=== PATIENT | male | born 2000 | race Caucasian/White ===

== ENCOUNTER 2022-05-13 21:55 | Emergency (ER) | payer OTHER ==
[~2022-05-13] VITALS: Ht 172.7 cm; Wt 53.0 kg
[2022-05-13] MEDS ORDERED: QVAR REDIHALE10.6 G1 INH (22:09)
[2022-05-13] MEDS ORDERED: VENTOLIN HFA18 GM INH ×2 (22:10→23:17)
[2022-05-13] MEDS ORDERED: PREDNISONE20 MG PO (23:17)
== END 2022-05-13 23:29 | disposition home or self-care (01) ==
LOC: ED 21:55
DX: J45.901 Unspecified asthma with (acute) exacerbation (principal); Z20.822 Contact with and (suspected) exposure to COVID-19
CPT/HCPCS: 36415; 71045; 80048; 85025; 87502; 94640; 96374; 99285-25; C9803; J2930; U0003

== ENCOUNTER 2023-11-03 17:09 | Emergency (ER) | payer OTHER ==
[~2023-11-03] VITALS: Ht 172.7 cm; Wt 78.0 kg
[~2023-11-03 17:09] MED LIST: PREDNISONE20 MG PO; QVAR REDIHALE10.6 G1 INH; VENTOLIN HFA18 GM INH
[2023-11-03] MEDS ORDERED: ALBUTEROL/IPRATROPIUM 3 ML NEB INH ONE (17:45)
[2023-11-03] MEDS ORDERED: QVAR REDIHALE10.6 G1 INH (19:58)
[2023-11-03] MEDS ORDERED: INHALER, ASSIST DEVICES 1 EACH SPACER MISC ONE (20:00)
[2023-11-03] MEDS ORDERED: ALBUTEROL SULFATE 8 GM HOME.PACK INH ONE (20:00)
[2023-11-03 20:14] VITALS: BP 122/70
== END 2023-11-03 20:14 | disposition home or self-care (01) ==
LOC: ED 17:09
DX: J45.901 Unspecified asthma with (acute) exacerbation (principal)
CPT/HCPCS: 94640; 99284-25

== ENCOUNTER 2024-04-02 22:11 | Emergency (ER) | payer OTHER ==
[~2024-04-02] VITALS: Ht 172.7 cm; Wt 76.7 kg
[2024-04-02 23:45] LABS: INFLUENZA B NAA NEGATIVE (NEGATIVE); RESPIRATORY SYNCYTIAL VIR NAA NEGATIVE (NEGATIVE)
[2024-04-03 00:08] VITALS: BP 137/67
== END 2024-04-03 00:11 | disposition home or self-care (01) ==
LOC: ED 22:11
PROVIDERS: Internal Medicine
DX: B34.9 Viral infection, unspecified (principal); Z02.79 Encounter for issue of other medical certificate; J45.909 Unspecified asthma, uncomplicated
CPT/HCPCS: 87502; 99284; U0002

== ENCOUNTER 2025-01-19 20:49 | Emergency (ER) | payer OTHER ==
[~2025-01-19] VITALS: Ht 172.7 cm; Wt 67.9 kg
[2025-01-19] MEDS ORDERED: ALBUTEROL/IPRATROPIUM 3 ML NEB INH ONE (21:15)
[2025-01-19] MEDS ORDERED: BUDESONIDE 0.5 MG/2 ML VIAL INH ONE (21:15)
[2025-01-19] MEDS ORDERED: ALBUTEROL SULFATE 0.5% 2.5 MG/0.5 ML VIAL INH ONE (21:15)
[2025-01-19] MEDS ORDERED: INHALER, ASSIST DEVICES 1 EACH SPACER MISC ONE (21:30)
[2025-01-19] MEDS ORDERED: ALBUTEROL SULFATE 8 GM HOME.PACK INH ONE (21:30)
[2025-01-19] MEDS ORDERED: SYMBICORT 16010.2 GM INH (21:43)
[2025-01-19] MEDS ORDERED: methylPREDNISolone 4 MG HOME.PACK PO ONE (21:45)
[2025-01-19 22:14] VITALS: BP 137/84
--- NOTE | 2025-01-20 21:37 | EKG ---
[facility] [address] [facility] [place] [address] Signed Sinus rhythm with marked sinus arrhythmia with short [place] Otherwise normal ECG No previous ECGs available Confirmed by Viv Morales MD () on 01/20/2025 9:37:04 PM Electronically Signed By: VIV MORALES MD 01/20/25 2137 PATIENT NAME: KELLY BARAJAS Electrocardiogram DATE OF : [birth year] PHYSICIAN: VIV MORALES MD REPORT #: [id number] REPORT IS CONFIDENTIAL AND NOT TO BE RELEASED WITHOUT AUTHORIZATION
== END 2025-01-19 22:15 | disposition home or self-care (01) ==
LOC: ED 20:49
DX: J45.901 Unspecified asthma with (acute) exacerbation (principal)
CPT/HCPCS: 71045; 93005; 93010; 94640; 94644; 94664; 99285-25

== ENCOUNTER 2025-06-25 08:05 | Emergency (ER) | payer OTHER ==
[~2025-06-25] VITALS: Ht 172.7 cm; Wt 69.0 kg
[~2025-06-25 08:05] MED LIST changes: +SYMBICORT 16010.2 GM INH
[2025-06-25] MEDS ORDERED: ALBUTEROL/IPRATROPIUM 3 ML NEB INH ONE (08:15)
[2025-06-25] MEDS ORDERED: PREDNISONE20 MG PO (08:38)
[2025-06-25] MEDS ORDERED: VENTOLIN HFA18 GM INH (08:38)
[2025-06-25 08:44] VITALS: BP 127/75
[2025-06-25] MEDS ORDERED: predniSONE 20 MG TAB PO ONE (08:45)
[2025-06-25] MEDS ORDERED: ALBUTEROL SULFATE 8 GM HOME.PACK INH ONE ×2 (08:45→09:00)
== END 2025-06-25 08:56 | disposition home or self-care (01) ==
LOC: ED 08:05
DX: J45.901 Unspecified asthma with (acute) exacerbation (principal); Z79.899 Other long term (current) drug therapy
CPT/HCPCS: 94640; 99284; J7512

== ENCOUNTER 2025-07-17 19:26 | Emergency (ER) | payer OTHER ==
[~2025-07-17] VITALS: Ht 172.7 cm; Wt 65.0 kg
--- OUTSIDE RECORDS SUMMARY | 2025-07-17 19:33 | XMS ---
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 E.Dali VISIT COUNT (12 MO.) [address] [place] [address] TOTAL 3 NOTE: Visits indicate total known visits. 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
[2025-07-17] MEDS ORDERED: BUDESONIDE 0.5 MG/2 ML VIAL INH ONE (19:45)
[2025-07-17] MEDS ORDERED: ALBUTEROL/IPRATROPIUM 3 ML NEB INH ONE (19:45)
[2025-07-17] MEDS ORDERED: ALBUTEROL SULFATE 0.5% 2.5 MG/0.5 ML VIAL INH ONE (19:45)
[2025-07-17] MEDS ORDERED: VENTOLIN HFA18 GM INH (21:11)
[2025-07-17] MEDS ORDERED: ALBUTEROL SULFATE 8 GM HOME.PACK INH ONE (21:15)
[2025-07-17] MEDS ORDERED: AZITHROMYCIN 250 MG HOME.PACK PO ONE (21:15)
[2025-07-17] MEDS ORDERED: methylPREDNISolone 4 MG HOME.PACK PO ONE (21:15)
[2025-07-17 21:21] VITALS: BP 125/80
== END 2025-07-17 21:22 | disposition home or self-care (01) ==
LOC: ED 19:26
DX: J45.901 Unspecified asthma with (acute) exacerbation (principal)
CPT/HCPCS: 71045; 94640; 94644; 96374; 99285-25; J2919

== ENCOUNTER 2025-08-14 14:58 | Emergency (ER) | payer OTHER ==
[~2025-08-14] VITALS: Ht 172.7 cm; Wt 73.8 kg
--- OUTSIDE RECORDS SUMMARY | 2025-08-14 15:04 | XMS ---
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 EYifan VISIT COUNT (12 MO.) [address] [place] [address] TOTAL 4 NOTE: Visits indicate total known visits. 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 [place] TYPE: Emergency COMPLAINT: - TROUBLE BREATHING DIAGNOSES: - Shortness of breath - Unspecified asthma with (acute) exacerbation INPATIENT VISIT TRACKING (12 MO.) No inpatient visits to display in this time frame [email or web address]
[2025-08-14] MEDS ORDERED: ALBUTEROL/IPRATROPIUM 3 ML NEB INH PRN (15:15)
[2025-08-14 16:15] LABS: BASOPHILS 0.9 % (0.2-1.2); EOSINOPHILS 13.3 % (0.8-7.0); LYMPHOCYTES 45.0 % (21.8-53.1); MCH 31.1 PG (25.7-32.2); MCHC 36.2 g/dL (32.3-36.5); MCV 86.0 fL (79.0-92.2); MONOCYTES 6.3 % (5.3-12.2); NEUTROPHILS 34.4 % (34.0-67.9); RBC 5.08 M/uL (4.63-6.08)
[2025-08-14 16:37] LABS: ALT (SGPT) 29.0 U/L (14-59); AST (SGOT) 21.0 U/L (15-37); GLOMERULAR FILTRATION RATE,EST 85.0 mL/min (>60); PROTEIN, TOTAL 7.0 g/dL (6.4-8.2); UREA NITROGEN 11.0 mg/dL (7-18)
[2025-08-14] MEDS ORDERED: ALBUTEROL2.5 MG/3 M INH (20:29)
[2025-08-14] MEDS ORDERED: AMOX TR-K CLV1 EAC1 PO (20:29)
[2025-08-14] MEDS ORDERED: ALBUTEROL SULFATE 8 GM HOME.PACK INH ONE (20:30)
[2025-08-14] MEDS ORDERED: AMOXICILLIN/CLAVULANATE K 875 MG HOME.PACK PO ONE (20:30)
[2025-08-14] MEDS ORDERED: methylPREDNISolone 4 MG HOME.PACK PO ONE (20:30)
[2025-08-14] MEDS ORDERED: AMOXICILLIN/CLAVULANATE K 875 MG TAB PO ONE (20:45)
[2025-08-14 20:51] VITALS: BP 120/78
--- NOTE | 2025-08-14 22:01 | EKG ---
[facility] [address] [place] [address] Signed Normal sinus rhythm with sinus arrhythmia Nonspecific T wave abnormality Abnormal ECG When compared with ECG of 19-JAN-2025 21:01, No significant change was found Confirmed by Viv Morales MD () on 08/14/2025 10:01:44 PM Electronically Signed By: VIV MORALES MD 08/14/252200 PATIENT NAME: JENNKELLY KARYNA Electrocardiogram DATE OF : [birth year] PHYSICIAN: VIV MORALES MD REPORT #: [id number] REPORT IS CONFIDENTIAL AND NOT TO BE RELEASED WITHOUT AUTHORIZATION
== END 2025-08-14 20:51 | disposition home or self-care (01) ==
LOC: ED 14:58
PROVIDERS: Emergency Medicine
DX: J45.901 Unspecified asthma with (acute) exacerbation (principal)
CPT/HCPCS: 36415; 71045; 80053; 83735; 84484; 85025; 93005; 93010; 94640; 99285-25

== ENCOUNTER 2025-08-21 20:23 | Emergency (ER) | payer OTHER ==
[~2025-08-21] VITALS: Ht 172.7 cm; Wt 74.7 kg
[~2025-08-21 20:23] MED LIST changes: +ALBUTEROL2.5 MG/3 M INH; +AMOX TR-K CLV1 EAC1 PO
--- OUTSIDE RECORDS SUMMARY | 2025-08-21 20:30 | XMS ---
PreManage Notification: KELLY BARAJAS Security Manager Msw Events No recent Security Events currently on file CRITERIA MET - [facility] - 2 Visits in 30 Days CARE PROVIDERS -, [facility] Dentist: Election Clerk Current [place] PHONE: [phone] EVI VIDAL Physician Assistant Opal Sena PHONE: Unknown Sukhwinder has no Care Guidelines for this patient. EYifan VISIT COUNT (12 MO.) [address] [place] [address] TOTAL 5 NOTE: Visits indicate total known visits. ED/UCC VISIT TRACKING (12 MO.) 08/21/2025 20:23 [facility] TYPE: Emergency COMPLAINT: - DIFFICULTY BREATHING 08/14/2025 14:58 [facility] TYPE: Emergency COMPLAINT: - SHORTNESS OF BREATH DIAGNOSES: - Shortness of breath - Unspecified asthma with (acute) exacerbation 07/17/2025 19:27 [facility] TYPE: Emergency COMPLAINT: - SOB DIAGNOSES: - Shortness of breath - Unspecified asthma with (acute) exacerbation 06/25/2025 08:06 [facility] TYPE: Emergency COMPLAINT: - SHORTNESS OF BREATH DIAGNOSES: - Other group home (current) drug therapy - Shortness of breath - Unspecified asthma with (acute) exacerbation 01/19/2025 20:49 [facility] TYPE: Emergency COMPLAINT: - TROUBLE BREATHING DIAGNOSES: - Shortness of breath - Unspecified asthma with (acute) exacerbation INPATIENT VISIT TRACKING (12 MO.) No inpatient visits to display in this time frame [email or web address]
[2025-08-21 20:45] LABS: BASOPHILS 1.1 % (0.2-1.2); EOSINOPHILS 12.8 % (0.8-7.0); LYMPHOCYTES 40.8 % (21.8-53.1); MCH 31.1 PG (25.7-32.2); MCHC 35.3 g/dL (32.3-36.5); MCV 88.2 fL (79.0-92.2); MONOCYTES 7.2 % (5.3-12.2); NEUTROPHILS 38.0 % (34.0-67.9); RBC 5.08 M/uL (4.63-6.08)
[2025-08-21] MEDS ORDERED: ALBUTEROL/IPRATROPIUM 3 ML NEB INH ONE (20:45)
[2025-08-21 21:04] LABS: ALT (SGPT) 40.0 U/L (14-59); AST (SGOT) 33.0 U/L (15-37); GLOMERULAR FILTRATION RATE,EST 102.0 mL/min (>60); PROTEIN, TOTAL 7.1 g/dL (6.4-8.2); UREA NITROGEN 9.0 mg/dL (7-18)
[2025-08-21] MEDS ORDERED: METHYLPREDNISOLO4 M1 PO (21:24)
[2025-08-21] MEDS ORDERED: BREYNA 160-4.10.3 GM INH (21:27)
[2025-08-21] MEDS ORDERED: DEXAMETHASONE SOD PHOS 10 MG/ML VIAL IV ONE (21:30)
[2025-08-21] MEDS ORDERED: KETOROLAC TROMETHAMINE 30 MG/ML VIAL IV ONE (21:30)
[2025-08-21] MEDS ORDERED: ALBUTEROL SULFATE 8 GM HOME.PACK INH ONE (21:30)
[2025-08-21 22:04] VITALS: BP 111/63
--- NOTE | 2025-08-23 07:31 | EKG ---
[facility] [address] [facility] [place] [address] Signed Normal sinus rhythm Normal ECG When compared with ECG of 14-AUG-2025 16:00, No significant change was found Confirmed by Cody Mehta DO ([id number]) on 08/23/2025 7:31:27 AM Electronically Signed By: CODY MEHTA DO 08/23/25 0731 PATIENT NAME: JENNKELLY KARYNA Electrocardiogram DATE OF : [birth year] PHYSICIAN: CODY MEHTA DO REPORT #: [id number] REPORT IS CONFIDENTIAL AND NOT TO BE RELEASED WITHOUT AUTHORIZATION
== END 2025-08-21 21:55 | disposition home or self-care (01) ==
LOC: ED 20:23
PROVIDERS: Internal Medicine
DX: J45.901 Unspecified asthma with (acute) exacerbation (principal)
CPT/HCPCS: 36415; 71045; 80053; 83735; 84484; 85025; 93005; 93010; 94640; 96374; 99285-25; J1100

== ENCOUNTER 2025-09-06 12:28 | Emergency (ER) | payer OTHER ==
[~2025-09-06] VITALS: Ht 172.7 cm; Wt 75.3 kg
[~2025-09-06 12:28] MED LIST changes: +BREYNA 160-4.10.3 GM INH; +METHYLPREDNISOLO4 M1 PO
--- OUTSIDE RECORDS SUMMARY | 2025-09-06 12:35 | XMS ---
PreManage Notification: KELLY BARAJAS Security Supervisor Stripping Events No recent Security Events currently on file CRITERIA MET - [facility] - 2 Visits in 30 Days CARE PROVIDERS -, [facility] Dentist: Rivet Thrower Current [place] PHONE: [phone] EVI VIDAL Physician Assistant Opal Sena PHONE: Unknown Sukhwinder has no Care Guidelines for this patient. EYifan VISIT COUNT (12 MO.) [address] [place] [address] TOTAL 6 NOTE: Visits indicate total known visits. ED/UCC VISIT TRACKING (12 MO.) 09/06/2025 12:28 [facility] [place] TYPE: Emergency COMPLAINT: - SHORTNESS OF BREATH 08/21/2025 20:23 [facility] TYPE: Emergency COMPLAINT: - DIFFICULTY BREATHING DIAGNOSES: - Shortness of breath - Unspecified asthma with (acute) exacerbation 08/14/2025 14:58 [facility] [place] TYPE: Emergency COMPLAINT: - SHORTNESS OF BREATH DIAGNOSES: - Shortness of breath - Unspecified asthma with (acute) exacerbation 07/17/2025 19:27 [facility] TYPE: Emergency COMPLAINT: - SOB DIAGNOSES: - Shortness of breath - Unspecified asthma with (acute) exacerbation 06/25/2025 08:06 [facility] TYPE: Emergency COMPLAINT: - SHORTNESS OF BREATH DIAGNOSES: - Other [facility] (current) drug therapy - Shortness of breath - Unspecified asthma with (acute) exacerbation 01/19/2025 20:49 [facility] TYPE: Emergency COMPLAINT: - TROUBLE BREATHING DIAGNOSES: - Shortness of breath - Unspecified asthma with (acute) exacerbation INPATIENT VISIT TRACKING (12 MO.) No inpatient visits to display in this time frame [id number]
[2025-09-06] MEDS ORDERED: ALBUTEROL/IPRATROPIUM 3 ML NEB INH PRN (12:45)
[2025-09-06] MEDS ORDERED: VENTOLIN HFA18 GM INH (14:56)
[2025-09-06] MEDS ORDERED: DEXAMETHASONE SOD PHOS 10 MG/ML VIAL PO ONE (15:00)
[2025-09-06] MEDS ORDERED: ALBUTEROL/IPRATROPIUM 3 ML NEB INH ONE (15:00)
[2025-09-06 15:48] VITALS: BP 135/73
--- NOTE | 2025-09-07 12:07 | EKG ---
[facility] [address] [facility] [place] [address] Signed Normal sinus rhythm Rightward axis Borderline ECG When compared with ECG of 21-AUG-2025 20:39, No significant change was found Confirmed by Willie Mehta DO ([id number]) on 09/07/2025 12:07:22 PM Electronically Signed By: WILLIE MEHTA DO 09/07/25 1207 PATIENT NAME: KELLY BARAJAS Electrocardiogram DATE OF : 01 PHYSICIAN: WILLIE MEHTA DO REPORT #: [id number] REPORT IS CONFIDENTIAL AND NOT TO BE RELEASED WITHOUT AUTHORIZATION
== END 2025-09-06 15:49 | disposition home or self-care (01) ==
LOC: ED 12:28
DX: J45.901 Unspecified asthma with (acute) exacerbation (principal); Z79.899 Other long term (current) drug therapy
CPT/HCPCS: 71045; 80053; 83735; 84484; 85025; 93005; 93010; 94640; 99285-25; J8540